=== PATIENT | male | born 1970 | race Caucasian/White ===

== ENCOUNTER 2018-03-06 11:30 | Emergency (ER) | payer OTHER ==
[2018-03-06] MEDS ORDERED: methylPREDNISolone Sodium Succinate 125 MG/2 ML SDV IM ONE (12:18)
[2018-03-06] MEDS ORDERED: Cetirizine 10 MG Tab PO ONE (12:18)
--- NOTE | 2018-03-06 13:19 | EDM.PDOC ---
ED HPI GENERAL MEDICAL PROBLEM - General Chief Complaint: Allergic Reaction Stated Complaint: RASH BREAKOUT ALL OVER BODY Time Seen by Provider: 03/06/18 11:58 Source of Information: Reports: Patient, Family History Limitations: Reports: No Limitations - History of Present Illness INITIAL COMMENTS - FREE TEXT/NARRATIVE: HISTORY AND PHYSICAL: []Patient presents with rash all over welts itching History of Present Illness: []Only new thing he can figure is that he had mosquito bites Is having some chills Review of Systems: As per history of present illness and below otherwise all systems reviewed and negative. Past medical history: As per history of present illness and as reviewed below otherwise noncontributory. Surgical history: As per history of present illness and as reviewed below otherwise noncontributory. Social history: No reported history of drug or alcohol abuse. Family history: As per history of present illness and as reviewed below otherwise noncontributory. Physical exam:Alert and oriented male answering questions appropriately in full sentences without any shortness of breath. Nontoxic in appearance. I'm rash noted throughout his body HEENT: Atraumatic, normocehpalic, pupils reactive, negative for conjunctival pallor or scleral icterus, mucous membranes moist, throat clear, neck supple, nontender, trachea midline. Lungs: Clear to auscultation, breath sounds equal bilaterally, chest non tender. Heart: S1S2, regular, negative for clicks, rubs, or JVD. Abdomen: Soft, nondistended, nontender. Negative for masses or hepatossplenmegaly. Negative for costovertebral tenderness. Pelvis: Stable nontender. Genitourinary: Deferred. Rectal: Deferred Extremities: Atraumatic, negative for cords or calf pain. Neurovascular unremarkable. Neuro: Awake, alert, oriented. Cranial nerves II through XII unremarkable. Cerebellum unremarkable. Motor and sensory unremarkable throughout. Exam nonfocal. Diagnostics: [][employer]: []solumedrol Impression: []hives Plan: []discharge home medrol dose erum tyleno alternating with motrin Zyrtec 10mg daily for 2 weeks Definitive disposition and diagnosis as appropriate pending reevaluation and review of above. Onset: Sudden hives Pain Score (Numeric/FACES): 7 - Related Data Allergies Allergy/AdvReac Type Severity Reaction Status Date / Time erythromycin base Allergy Swelling Verified 03/06/18 11:47 Penicillins Allergy Swelling Verified 03/06/18 11:47 Home Meds: Home Meds diphenhydrAMINE HCl [Benadryl] 1 cap PO Q4HR 03/06/18 [History] methylPREDNISolone [Medrol] 4 mg PO ASDIRECTED #1 dosepk 03/06/18 [Rx] Past Medical History HEENT History: Reports: None Cardiovascular History: Reports: None Respiratory History: Reports: None Gastrointestinal History: Reports: None Genitourinary History: Reports: None Musculoskeletal History: Reports: None Neurological History: Reports: None Psychiatric History: Reports: None Endocrine/Metabolic History: Reports: None Hematologic History: Reports: None Immunologic History: Reports: None Oncologic (Cancer) History: Reports: None Dermatologic History: Reports: None - Infectious Disease History Infectious Disease History: Reports: Chicken Pox, Shingles - Past Surgical History Head Surgeries/Procedures: Reports: None HEENT Surgical History: Reports: None Cardiovascular Surgical History: Reports: None Respiratory Surgical History: Reports: None GI Surgical History: Reports: Appendectomy Male Surgical History: Reports: None Endocrine Surgical History: Reports: None Neurological Surgical History: Reports: None Musculoskeletal Surgical History: Reports: Other (See Below) Other Musculoskeletal Surgeries/Procedures:: knee surgery Oncologic Surgical History: Reports: None Dermatological Surgical History: Reports: None Social & Family History - Family History Family Medical History: Noncontributory - Tobacco Use Smoking Status *Q: Never Smoker Second Hand Smoke Exposure: No - Caffeine Use Caffeine Use: Reports: Energy Drinks - Recreational Drug Use Recreational Drug Use: No ED ROS ALLERGIC REACTION - Review of Systems Review Of Systems: ROS reveals no pertinent complaints other than HPI. ED EXAM GENERAL NO PERIP PULSE - Physical Exam Exam: See Below (see dictation) Course - Vital Signs Last Recorded V/S: Last Vital Signs Temp 35.9 C 03/06/18 11:48 Pulse 102 H 03/06/18 11:48 Resp 18 03/06/18 11:48 BP 149/91 H 03/06/18 11:48 Pulse Ox 96 03/06/18 11:48 - Orders/Labs/Meds Orders: Active Orders 24 hr Category Date Time Status [facility] ANTIBODY,SERUM [REF] Stat Lab 03/06/18 12:36 Received Meds: Medications Discontinued Medications Generic Name Dose Route Start Last Admin Trade Name Freq PRN Reason Stop Dose Admin Cetirizine HCl 10 mg 03/06/18 12:18 03/06/18 12:27 Zyrtec PO 03/06/18 12:19 10 mg ONETIME ONE Administration Methylprednisolone Sodium Succinate 125 mg 03/06/18 12:18 03/06/18 12:27 Solu-Medrol IM 03/06/18 12:19 125 mg ONETIME ONE Administration Departure - Departure Time of Disposition: 13:18 Disposition: Home, Self-Care 01 Condition: Good Clinical Impression: Hives - Discharge Information Prescriptions: methylPREDNISolone [Medrol] 4 mg PO ASDIRECTED #1 dosepk Instructions: Hives, Allergies, Adult, [id number] Referrals: PCP,None [Primary Care Provider] - Additional Instructions: The following information is given to patients seen in the emergency department who are being discharged to home. This information is to outline your options for follow-up care. We provide all patients seen in our emergency department with a follow-up referral. The need for follow-up, as well as the timing and circumstances, are variable depending upon the specifics of your emergency department visit. If you don't have a primary care physician on staff, we will provide you with a referral. We always advise you to contact your personal physician following an emergency department visit to inform them of the circumstance of the visit and for follow-up with them and/or the need for any referrals to a consulting specialist. The emergency department will also refer you to a specialist when appropriate. This referral assures that you have the opportunity for followup care with a specialist. All of these measure are taken in an effort to provide you with optimal care, which includes your followup. Under all circumstances we always encourage you to contact your private physician who remains a resource for coordinating your care. When calling for followup care, please make the office aware that this follow-up is from your recent emergency room visit. If for any reason you are refused follow-up, please contact the [facility] emergency department at and asked to speak to the emergency department charge nurse. Given Solu-Medrol while in the emergency department with a steroid Prescription for Medrol Dosepak will be sent to your pharmacy Zyrtec 10 mg daily for the next 2 weeks 10 you with the Benadryl - My Orders Last 24 Hours: My Active Orders 03/06/18 12:36 [facility] ANTIBODY,SERUM [REF] Stat - Assessment/Plan Last 24 Hours: My Active Orders 03/06/18 12:36 [facility] ANTIBODY,SERUM [REF] Stat
== END 2018-03-06 13:33 | disposition home or self-care (01) ==
LOC: MW.ED 11:30
DX: L50.9 Urticaria, unspecified (principal); Z88.1 Allergy status to other antibiotic agents; Z88.0 Allergy status to penicillin
CPT/HCPCS: 86788; 86789; 96372; 99283; A9270; J2930; 36415